=== PATIENT | female | born 1955 | race Caucasian/White ===

== ENCOUNTER 2025-06-05 09:27 | Emergency (ER) | payer OTHER ==
[2025-06-05 09:48] LABS: Absolute Lymphocytes (CBC) 2.5 K/uL (0.7-4.9); Hematocrit 41.4 % (36.0-45.0); Hemoglobin 14.0 g/dL (12.0-15.0); MCH 29.0 pg (27.0-35.0); MCHC 33.9 g/dL (32.0-36.0); MCV 85.5 fL (80-100); MPV 7.7 fL (7.6-11.3); Nucleated RBC Absolute Count 0.0 (0-0); Nucleated Red Blood Cells % 0.1 % (0-0); RBC Red Blood Cell Count 4.84 M/uL (3.86-4.86); White Blood Count 12.00 thou/uL (4.3-10.9)
[2025-06-05 10:07] LABS: Anion Gap 7.9 mEq/L (5.0-15.0); BUN Blood Urea Nitrogen 11.0 mg/dL (7-18); Glucose Level 107.0 mg/dL (74-106); Potassium 3.9 mEq/L (3.5-5.1); Troponin High Sensitivity 8.1 pg/mL (<58.9)
--- NOTE | 2025-06-05 10:28 | RAD REPORT ---
Procedure: Chest Single View HISTORY: Dizziness COMPARISON: none FINDINGS: The lungs appear clear of acute infiltrate. No significant pleural effusion noted. The heart is probably borderline. IMPRESSION: No acute abnormality is displayed.
--- NOTE | 2025-06-05 10:51 | ER ---
Nurse's Notes [facility] Name: Betty German Age: 70 yrs Sex: Female : 1955 Arrival Date: 06/05/2025 Time: 09:27 Bed 4 Private MD: Diagnosis: dizziness;Essential (primary) hypertension Presentation: 06/05 09:28 Chief complaint: Patient states: Vertigo, N/V and high blood pressure upon waking at ab3 0200 with S/S improved after taking BP med and EMS administration of Zofran, but mild nausea remains with intermittent vertigo and belching. Coronavirus screen: Vaccine status: Patient reports receiving the 1st dose of the Covid vaccine. Client denies travel out of the [place] in the last 14 days. vomiting. At this time, the client does not indicate any symptoms associated with coronavirus-19. Ebola Screen: Patient negative for fever greater than or equal to 101.5 degrees Fahrenheit, and additional compatible Ebola Virus Disease symptoms Patient denies exposure to infectious person. Patient denies travel to an Ebola-affected area in the 21 days before illness onset. No symptoms or risks identified at this time. Initial Sepsis Screen: Does the patient meet any 2 criteria? No. Patient's initial sepsis screen is negative. Does the patient have a suspected source of infection? No. Patient's initial sepsis screen is negative. Risk Assessment: Do you want to hurt yourself or someone else? Patient reports no desire to harm self or others. Onset of symptoms was June 05, 2025 at 02:00. Care prior to arrival: Medication(s) given: zofran 4 mg, 20G PIV to LAC. :28 Method Of Arrival: EMS: [facility] ab3 :28 Acuity: KIT 3 ab3 Triage Assessment: :28 General: Appears in no apparent distress. comfortable, Behavior is cooperative. Pain: ab3 Denies pain. Neuro: Level of Consciousness is awake, alert, obeys commands, Oriented to person, place, time, situation, Appropriate for age Assistive Technology Specialist are equal bilaterally Moves all extremities. Full function Gait is Speech is normal, Facial symmetry appears normal, Pupils are PERRLA, Reports dizziness, Vertigo since 0200; improving. Cardiovascular: No deficits noted. Heart tones S1 S2 Capillary refill < 3 seconds JVD is absent Patient's skin is warm and dry. Pulses are all present. Rhythm is sinus rhythm Chest pain is denied. Respiratory: Reports shortness of breath since Chronic, intermittent for years Pt states SOB is at baseline for her with no changes from her norm. Airway is patent Trachea midline Respiratory effort is even, unlabored, Respiratory pattern is regular. GI: Abdomen is round non-distended, Bowel sounds present X 4 quads. Abd is soft Abd is non tender Reports nausea, vomiting, since today at 0200; no active vomiting. nausea continues, but "is not as bad as before". Historical: - Allergies: :33 No Known Allergies; ab3 - PMHx: 09:33 Hypertensive disorder; ab3 - Immunization history:: Adult Immunizations up to date, Client reports receiving the 1st dose of the Covid vaccine. - Infectious Disease History:: Denies. - Social history:: Smoking status: Patient reports the use of cigarette tobacco products, smokes one pack cigarettes per day. Patient/guardian denies using alcohol, street drugs. - Code Status:: Full code. Screenin:41 [facility] ED Fall Risk Assessment (Adult) History of falling in the last 3 months, ab3 including since admission No falls in past 3 months (0 pts) Confusion or Disorientation No (0 pts) Intoxicated or Sedated No (0 pts) Impaired Gait No (0 pts) Mobility Assist Device Used No (0 pt) Altered Elimination No (0 pt) Score/Fall Risk Level 0 - 2 = Low Risk Oriented to surroundings, Maintained a safe environment, Educated pt \\T\\ family on fall prevention, incl call for assistance when getting out of bed, Assessed \\T\\ reinforced patient's understanding of fall precautions, Hourly rounding (assess needs \\T\\ fall precautionary measures) done. Abuse screen: Denies threats or abuse. Denies injuries from another. Nutritional screening: No deficits noted. Tuberculosis screening: No symptoms or risk factors identified. Assessment: 09:40 General: See triage assessment by this nurse at 0928. . ab3 Vital Signs: 09:28 BP 159 / 87 RA Sitting (auto/reg); Pulse 77; Resp 14; Temp 98.4(O); Pulse Ox 98% on ab3 R/A; Weight 95.71 kg; Height 5 ft. 5 in. ; Pain 0/10; 09:28 BP 159 / 87; Pulse 74; Resp 14; Temp 98.4(O); Pulse Ox 99% on R/A; Pain 0/10; ab3 10:15 BP 145 / 109; Pulse 73; Resp 16; Pulse Ox 97% on R/A; Pain 0/10; ab3 11:00 BP 147 / 89; Pulse 89; Resp 16; Temp 98.2; Pulse Ox 100% on R/A; Pain 0/10; ab3 09:28 Body Mass Index 35.11 (95.71 kg, 165.1 cm) ab3 09:28 Pain Scale: Adult ab3 09:28 Pain Scale: Adult ab3 10:15 Pain Scale: Adult ab3 11:00 Pain Scale: Adult ab3 ED Course: 07:28 Client placed on continuous cardiac and pulse oximetry monitoring. NIBP monitoring ab3 applied. hall monitor on. Pulse ox on. 09:28 Patient arrived in ED. ss 09:28 Cherelle Cooper RN is Primary Nurse. ab3 09:29 Emile Decker DO is Attending Physician. ms3 09:33 Triage completed. ab3 09:40 Arm band placed on. ab3 09:41 Patient has correct armband on for positive identification. Placed in gown. Bed in low ab3 position. Call light in reach. Side rails up X 1. Provided Education on: Oriented to ER and call light-use. 09:42 Maintain EMS IV. Dressing intact. Site clean \\T\\ dry. Gauge \\T\\ site: 20G LAC. Flushed with ab 3 10 mL NS IV is patent, is intact, Flushed left antecubital. 09:44 Basic Metabolic Panel Sent. bc6 09:44 CBC with Diff Sent. bc6 09:44 Troponin HS Sent. bc6 09:47 Initial lab(s) drawn, by nd, sent to lab. EKG done, by ED staff, reviewed by Emile Decker DO. 10:03 XRAY Chest (1 view) In Process Unspecified. EDMS 10:50 Mayito Link MD is Referral Physician. ms3 11:04 No provider procedures requiring assistance completed. ab3 11:05 IV discontinued, intact, bleeding controlled, Pressure dressing applied. ab3 Administered Medications: 11:03 Drug: Meclizine PO 50 mg PO once Route: PO; ab3 11:04 Follow up: Response: No adverse reaction; Other; Too early to assess effectiveness and ab3 pt being DC'd. Medication: 09:42 VIS not applicable for this client. ab3 Point of Care Testing: Blood Glucose: 09:28 Blood Glucose: 114 mg/dL; ab3 09:28 en route by EMS ab3 Ranges: Intake: Outcome: 10:50 Discharge ordered by MD. ms3 11:16 Discharged to home via wheelchair, ab3 11:16 Condition: stable 11:16 Discharge instructions given to patient, family, Instructed on discharge instructions, follow up and referral plans. medication usage, safety practices, Demonstrated understanding of instructions, follow-up care, medications, Prescriptions given X 1, 11:17 Patient left the ED. ab3 Signatures: Dispatcher [employer] EDMS Moira Hernandez, RN RN Emile Abreu, DO ms3 Breann Barragan bc6 Cherelle Cooper, TERRI RN ab3
--- NOTE | 2025-06-05 10:51 | EDPHYS ---
Physician Documentation [facility] Name: Betty German Age: 70 yrs Sex: Female : 1955 Arrival Date: 06/05/2025 Time: 09:27 Bed 4 Private MD: ED Physician Emile Decker HPI: 06/05 10:46 This 70 yrs old Female presents to ER via EMS with unknown complaint. ms3 10:46 70-year-old female with past medical history of vertigo, hypertension, diabetes ms3 presents to the emergency department with vertigo and nausea that began at 2 AM. Patient states symptoms began on waking up at 2 AM. Patient states since arrival to the emergency department her symptoms have improved. Patient denies pain or dizziness on arrival to the emergency department. Historical: - Allergies: 09:33 No Known Allergies; ab3 - PMHx: :33 Hypertensive disorder; ab3 - Immunization history:: Adult Immunizations up to date, Client reports receiving the 1st dose of the Covid vaccine. - Infectious Disease History:: Denies. - Social history:: Smoking status: Patient reports the use of cigarette tobacco products, smokes one pack cigarettes per day. Patient/guardian denies using alcohol, street drugs. - Code Status:: Full code. ROS: 10:46 Constitutional: Negative for fever, and chills. Cardiovascular: Negative for chest ms3 pain, and palpitations. Respiratory: Negative for shortness of breath, cough, wheezing, and pleuritic chest pain, Back: Negative for injury and pain, MS/Extremity: Negative for injury and deformity, 10:46 Neuro: Positive for dizziness, Exam: 10:42 ECG was reviewed by the Attending Physician. ms3 10:46 Constitutional: This is a well developed, well nourished patient who is awake, alert, ms3 and in no acute distress. Cardiovascular: Regular rate and rhythm with a normal S1 and S2. No gallops, murmurs, or rubs. Normal PMI, no JVD. No pulse deficits. Respiratory: Lungs have equal breath sounds bilaterally, clear to auscultation and percussion. No rales, rhonchi or wheezes noted. No increased work of breathing, no retractions or nasal flaring. Abdomen/GI: Soft, non-tender, with normal bowel sounds. No distension or tympany. No guarding or rebound. No evidence of tenderness throughout. Skin: Warm, dry with normal turgor. Normal color with no rashes, no lesions, and no evidence of cellulitis. 10:46 Neuro: Orientation: is normal, to person, place, time \T\ situation. Mentation: is normal, Memory: is normal, Cranial nerves: CN I not tested, CN II- XII are normal as tested, Cerebellar function: is grossly normal, normal finger to nose testing, Vital Signs: 09:28 BP 159 / 87 RA Sitting (auto/reg); Pulse 77; Resp 14; Temp 98.4(O); Pulse Ox 98% on ab3 R/A; Weight 95.71 kg; Height 5 ft. 5 in. ; Pain 0/10; 09:28 BP 159 / 87; Pulse 74; Resp 14; Temp 98.4(O); Pulse Ox 99% on R/A; Pain 0/10; ab3 10:15 BP 145 / 109; Pulse 73; Resp 16; Pulse Ox 97% on R/A; Pain 0/10; ab3 11:00 BP 147 / 89; Pulse 89; Resp 16; Temp 98.2; Pulse Ox 100% on R/A; Pain 0/10; ab3 09:28 Body Mass Index 35.11 (95.71 kg, 165.1 cm) ab3 09:28 Pain Scale: Adult ab3 09:28 Pain Scale: Adult ab3 10:15 Pain Scale: Adult ab3 11:00 Pain Scale: Adult ab3 MDM: 09:29 Medical Screening Exam initiated ms3 10:46 Differential diagnosis: cardiac arrhythmia, hypovolemia, idiopathic dizziness, vertigo. ms3 Data reviewed: vital signs, nurses notes, lab test result(s), EKG, radiologic studies, and as a result, I will discharge patient. I considered the following discharge prescriptions or medication management in the emergency department Medications were administered in the Emergency Department. See MAR. Independent interpretation of the following test(s) in the Emergency Department EKG: See my EKG interpretation above X-Ray: My interpretation is Chest x-ray image reviewed by me does not reveal consolidation. Counseling: I had a detailed discussion with the patient and/or guardian regarding the historical points, exam findings, and any diagnostic results supporting the discharge/admit diagnosis, lab results, radiology results, the need for outpatient follow up, to return to the emergency department if symptoms worsen or persist or if there are any questions or concerns that arise at home. Special discussion: I discussed with the patient/guardian in detail that at this point there is no indication for admission to the hospital. It is understood, however, that if the symptoms persist or worsen the patient needs to return immediately for re-evaluation. ED course: On reevaluation patient remains asymptomatic. Patient to follow-up Dr. Link in 2 to 3 days. Patient understands and agrees with plan. All questions were answered. Return precautions were discussed include worsening symptoms, or any other concerns.. 06/05 09:29 Order name: Basic Metabolic Panel; Complete Time: 10:14 ms3 06/05 09:29 Order name: CBC with Diff; Complete Time: 10:14 ms3 06/05 09:29 Order name: Troponin HS; Complete Time: 10:14 ms3 06/05 09:29 Order name: XRAY Chest (1 view); Complete Time: 10:34 ms3 06/05 09:29 Order name: EKG; Complete Time: 09:30 ms3 06/05 09:29 Order name: Cardiac monitoring; Complete Time: 09:44 ms3 06/05 09:29 Order name: EKG - Nurse/Tech; Complete Time: 09:44 ms3 06/05 09:29 Order name: IV Saline Lock; Complete Time: 09:44 ms3 06/05 09:29 Order name: Labs collected and sent; Complete Time: 09:44 ms3 06/05 09:29 Order name: O2 Per Protocol; Complete Time: 09:44 ms3 06/05 09:29 Order name: O2 Sat Monitoring; Complete Time: 09:45 ms3 EC:42 Rate is 73 beats/min. Rhythm is regular. QRS [place] is Normal. PA interval is normal. QRS ms3 interval is normal. Clinical impression: Normal ECG. Interpreted by me. Reviewed by me. Administered Medications: 11:03 Drug: Meclizine PO 50 mg PO once Route: PO; ab3 11:04 Follow up: Response: No adverse reaction; Other; Too early to assess effectiveness and ab3 pt being DC'd. Point of Care Testing: Blood Glucose: : Blood Glucose: 114 mg/dL; ab3 09:28 en route by EMS ab3 Ranges: Critical Glucose Levels:Adult <50 mg/dl or >400 mg/dl <40 mg/dl or >180 mg/dl Disposition Summary: 06/05/25 10:50 Discharge Ordered Notes: Location: Home ms3 Condition: Stable ms3 Diagnosis - dizziness ms3 - Essential (primary) hypertension ms3 Followup: ms3 - With: Mayito Link MD - When: 2 - 3 days - Reason: Recheck today's complaints Discharge Instructions: - Discharge Summary Sheet ms3 - Hypertension, Adult ms3 - Vertigo, [id number] ms3 - DASH Eating Plan ms3 Forms: - Medication Reconciliation Form ms3 - Antibiotic Education ms3 - Prescription Opioid Use ms3 - Patient Portal Instructions ms3 - Leadership Thank You Letter ms3 Prescriptions: - Meclizine 25 mg Oral Tablet - take 1 tablet ORAL route every 8 hours As needed; 30 tablet; Refills: 0, ms3 Product Selection Permitted Signatures: Dispatcher [employer] Emile Reeder DO DO ms3 Cherelle Cooper, RN RN ab3
[2025-06-05] MEDS ORDERED: MECLIZINE HCL 12.5 MG TAB ONE (11:00)
[2025-06-05 11:29] VITALS: BP 147/89; TEMP 98.2; O2SAT 100
== END 2025-06-05 11:17 | disposition home or self-care (01) ==
LOC: ER 09:27
DX: R42 Dizziness and giddiness (principal); I10 Essential (primary) hypertension
CPT/HCPCS: 93005; 85025; 80048; 36415; 84484; 71045; 99285; J8597